=== PATIENT | male | born 1965 | race Caucasian/White ===

== ENCOUNTER → 2016-08-01 | Day surgery (SDC) | payer OTHER ==
[~2016-08-01] MED LIST: ACETAMINOPHEN/HYDROcodone 325 MG/5 MG TAB ONE; BUPIVACAINE HCL PF 0.25% 30 ML VIAL ONE; BUPIVACAINE/EPINEPHRINE 0.25% 50 ML VIAL ONE; KETOROLAC TROMETHAMINE 30 MG/ML (IVP) VIAL IV PUSH ONE; LACTATED RINGER'S 1000 ML INJ 1,000 ML ONE; LIDOCAINE 1%/EPINEPHrine 1:100,000 SOLN 20 ML VIAL ONE; MIDAZOLAM HCL 2 MG/2 ML VIAL ONE; NEOMYCIN/POLYMYXIN/BACITRACIN OINT 15 GM TUBE ONE; ONDANSETRON HCL 4 MG/2 ML VIAL IV PUSH ONE; PROPOFOL 200 MG/20 ML AMP IV ONE; ceFAZolin 2 GM PREMIX 50 ML ONE
--- NOTE | 2016-08-01 21:32 | TN ---
cc: GRANT GUILLAUME M.D. DATE OF SURGERY 08/01/16 PREOPERATIVE DIAGNOSIS Left inguinal hernia and foreign body plantar surface left foot. POSTOPERATIVE DIAGNOSES Left inguinal hernia and foreign body plantar surface left foot. PROCEDURE Laparoscopic repair of left inguinal hernia with mesh. Exploration of plantar surface of the left foot for presumed foreign body. SURGEON Dr. Grant Guillaume ASSISTANCE Natasha Dey THEATRICAL AGENT ANESTHESIA General. INDICATIONS A very pleasant 51-year-old gentleman who has noted a groin bulge in the left side since June 25. He does get occasional discomfort associated with it. He has the sensation of a splinter or tiny foreign body in his left foot and that location has developed a callus. He is desirous of exploration of left foot to see if a splinter could be removed. INTRAOPERATIVE FINDINGS Left indirect inguinal hernia with small spermatic cord lipoma. No obvious evidence of foreign body in left foot in exploration through the callus. ESTIMATED BLOOD LOSS Less than 5 ml. DESCRIPTION OF PROCEDURE IN DETAIL The patient was identified as Sae Alves, taken to the operating room and placed in the supine position. Sequential compression devices were placed on bilateral lower extremities. Following induction of adequate general anesthesia the patient's lower abdomen was prepped and draped in the usual sterile fashion with Betadine. A time-out procedure was performed. Following completion of time-out procedure to everyone's satisfaction within the room 0.25% Marcaine with epinephrine was placed at each incision site. An infraumbilical 2 cm incision was carried out with scalpel, dissection continued to the level of the anterior rectus fascia in the left side. This was incised in its medial border with a scalpel allowing for development of preperitoneal space with the surgeon's finger directed towards this pubic symphysis. The patient in slight Trendelenburg position. The preperitoneal dissecting balloon was placed in preperitoneal space, its balloon inflated to a level of approximately 30 pumps which allowed for identification of pubic symphysis, left side Grayson's ligament and the inferior epigastric vessels. The balloon was desufflated, removed and the structural balloon trocar placed preperitoneal space, its balloon inflated to insufflation to a level of 11 mmHg ensued. Two infraumbilical midline and 5 mm trocars were then placed preperitoneal space under direct laparoscopic view after incision skin with the scalpel. Attention was turned to dissection of the left side. Blunt dissection lateral and posterior to the spermatic cord was performed and the anteromedial surface of the spermatic cord was examined. There is an obvious indirect inguinal hernia sac. This was reduced to the base of the spermatic cord using blunt the graspers. Small spermatic cord lipoma was reduced from the inguinal canal as well. A 4 x 6 inches piece of [employer] ProLight mesh was cut from the anterolateral slit, placed around the spermatic cord and tacked into position with the ProTack device. Tacks were placed to approximate the anterolateral slit along the anterior border Grayson's ligament and the superior medial border of the mesh. A 2 x 6 inch piece of mesh was placed across the anterolateral slit and held into position with the ProTack device. Single tack was placed inferomedially, one superolaterally and one superomedially. Care was taken to avoid tack placement inferolaterally to avoid cutaneous nerve injury. Photographs were taken of the completed repair. Remaining local anesthetic was placed in preperitoneal space. Trocars were removed under direct visualization. There was no evidence of bleeding from trocar sites. Preperitoneal space was desufflated through the infraumbilical port, was then removed. The anterior rectus fascial incision was closed with a running 2-0 Vicryl suture. Port site skin incisions were approximated with 4-0 Monocryl subcuticular sutures. Dressings were applied with Mastisol and half inch brown Steri-Strips. Attention was then turned to the left foot. Left foot was scrubbed with alcohol and Hibiclens. The area of concern over the metatarsal head of the great toe on the left side was infiltrated with local anesthetic. A callus here was entered with an 11 blade. The wound was , opened with a hemostat. Exploration of the wound using the scalpel as well as the mosquito hemostat did not detect any glass or metallic foreign body. At one point a small sliver of wood extruded from the wound. Otherwise, I did not see or feel any definitive foreign body. The wound was irrigated. Pressure was held for hemostasis and antibiotic ointment and a dry dressing were placed. The patient tolerated the procedures without apparent complication. Sponge, needle and instrument counts were correct at the end of the case. This procedure was assisted by my nurse practitioner. The skill set of an THEATRICAL AGENT was medically necessary to provide adequate visualization and to facilitate efficiency in care of the operating room. The surgical scheduler was at the back table, providing appropriate instrumentation while the nurse practitioner directly assisted me through the entirety of the procedure. MD SANDI Wu/KAYLEE /4:36 PM /9:13 PM HANNAH
== END | disposition home or self-care (01) ==
LOC: ESDC 13:16
PROVIDERS: ATTEND Surgery Trauma Surgery
DX: K40.90 Unilateral inguinal hernia, without obstruction or gangrene, not specified as recurrent (principal); S90.852A Superficial foreign body, left foot, initial encounter
CPT/HCPCS: 00400; 00840; 28190; 49650; C1727; C1781; J0690; J1885; J2250; J2405; J3010; J7120